=== PATIENT | female | born 1985 | race African-American/Black ===

== ENCOUNTER 2018-01-16 13:50 | Emergency (ER) | payer OTHER ==
[~2018-01-16] VITALS: Ht 157.5 cm; Wt 80.3 kg
[2018-01-16 14:29] VITALS: BP 113/71
== END 2018-01-16 15:13 | disposition home or self-care (01) ==
LOC: ER 13:50
DX: N76.0 Acute vaginitis (principal); B96.89 Other specified bacterial agents as the cause of diseases classified elsewhere; S39.012A Strain of muscle, fascia and tendon of lower back, initial encounter; X58.XXXA Exposure to other specified factors, initial encounter; Y93.89 Activity, other specified; Y92.89 Other specified places as the place of occurrence of the external cause; Y99.8 Other external cause status